=== PATIENT | male | born 1980 | race Caucasian/White ===

== ENCOUNTER 2022-04-30 11:28 | Outpatient (REF) | payer BC, SELFPAY ==
[2022-04-30 13:47] LABS: MANUAL DIFF FLAG NO
[2022-04-30 13:50] LABS: Basophils Percent Auto 0.5 % (0-2); Eosinophils Absolute Auto 0.2 X10*3/uL (0.0-0.4); Eosinophils Percent Auto 3.4 % (0-4); Hematocrit 50.5 % (42.0-52.0); Hemoglobin 16.8 g/dl (14.0-18.0); Imm Gran Abs Auto 0.01 X10*3/uL (0.00-0.03); Imm Gran Pct Auto 0.2 % (0.0-0.4); Mean Corpuscular HGB Conc 33.3 g/dl (31.0-36.0); Mean Platelet Volume 12.8 fL (9.4-12.4); Monocytes Absolute Auto 0.6 X10*3/uL (0.1-1.2); Monocytes Percent Auto 9.6 % (2-11); Neutrophils Absolute Auto 3.4 x10*3/uL (2.0-8.3); Neutrophils Percent Auto 54.3 % (45-73); Platelet Count 115 X10*3/uL (160-400); Red Blood Count 6.01 X10*6/uL (4.60-5.80); Red Cell Distribution Width 13.2 % (11.0-16.0); White Blood Count 6.2 X10*3/uL (4.8-10.8)
[2022-04-30 14:18] LABS: Appearance Urine Clear; Color Urine Yellow; Glucose Urine UA Negative (Negative); Leukocyte Esterase Urine Negative (Negative); Nitrite Urine Negative (Negative); Urine Blood Negative (Negative); Urine Ketones Negative (Negative); Urine Protein Negative (Neg-Trace)
[2022-04-30 14:23] LABS: Bacteria Urine None Seen (None Seen); Hyaline Casts Urine 0-2 /LPF (0-2); RBC Urine 0-2 /HPF (0-2); Squamous Epithelial Cell Urine 0-2 /HPF (0-2); WBC Urine 0-5 /HPF (0-5)
[2022-04-30 14:34] LABS: Alanine Aminotransferase 36 U/L (0-40); Albumin Level 4.4 g/dL (3.5-5.0); Alkaline Phosphatase 86 U/L (39-117); Anion Gap 15 (12-20); Aspartate Amino Transferase 28 U/L (5-37); Bilirubin Total 0.6 mg/dL (0.0-1.0); Blood Urea Nitrogen 15 mg/dL (9-16); Calcium 9.7 mg/dL (8.4-10.2); Carbon Dioxide 26 mmol/L (22-29); Chloride 104 mmol/L (96-108); Cholesterol 200 mg/dL; Estimated Glomerular Filt Rate > 60; Glucose Fasting 98 mg/dL (60-99); HDL Cholesterol 52 mg/dL; LDL Cholesterol Calculated 117 mg/dl; Sodium 140 mmol/L (135-145); Total Protein 7.3 g/dL (6.5-8.0); Triglycerides 155 mg/dL
== END 2022-04-30 11:29 | disposition home or self-care (01) ==
LOC: HO.HMGCLDS 11:28
PROVIDERS: PCP Internal Medicine; Visit Provider Internal Medicine
DX: Z00.00 Encounter for general adult medical examination without abnormal findings (principal)
CPT/HCPCS: 36415; 80053; 80061; 81001; 85025

== ENCOUNTER 2022-06-08 12:57 | Outpatient (REF) | payer BC, SELFPAY ==
[2022-06-08 14:24] LABS: Baso%MD 0.4 %; Eos%MD 2.2 %; Hematocrit 48.7 % (42.0-52.0); Hemoglobin 16.6 g/dl (14.0-18.0); IG%MD 0.2 %; Lymph%MD 30.2 %; Mean Corpuscular HGB Conc 34.1 g/dl (31.0-36.0); Mean Corpuscular Hemoglobin 28.8 pg (27.0-33.0); Mean Corpuscular Volume 84.4 fL (80.0-98.0); Mono%MD 10.4 %; Neut%MD 56.6 %; Platelet Count 121 X10*3/uL (160-400); Red Blood Count 5.77 X10*6/uL (4.60-5.80); Red Cell Distribution Width 13.5 % (11.0-16.0); White Blood Count 5.6 X10*3/uL (4.8-10.8)
[2022-06-08 15:31] LABS: Folate 11.7 ng/mL (> or = 4.0); Vitamin B12 562 pg/mL (200-900)
[2022-06-08 15:32] LABS: Atypical Lymph Absolute Manual 0.1 x10*3/uL; Atypical Lymphs Percent Manual 1 % (0-6); Band Neutrophils Percent 2 % (3-5); Basophils Abs Manual 0.2 X10*3/uL (0.0-0.2); Basophils Percent Manual 3 % (0-2); Eosinophils Absolute Manual 0.1 X10*3/uL (0.0-0.4); Eosinophils Percent Manual 2 % (0-4); Lymphocytes Absolute Manual 1.3 X10*3/uL (1.2-4.9); Lymphocytes Percent Manual 23 % (20-40); Monocytes Absolute Manual 0.4 X10*3/uL (0.1-1.2); Monocytes Percent Manual 7 % (2-11); Neutrophils Absolute Manual 3.6 X10*3/uL (2.0-8.3); Neutrophils Percent Manual 62 % (45-73)
[2022-06-08 15:33] LABS: Platelet Estimate SLIGHTLY DECREASED (NORMAL); Platelet Morphology Comment NORMAL; RBC Morphology NORMAL
== END 2022-06-08 12:58 | disposition home or self-care (01) ==
LOC: HO.HMGCLDS 12:57
PROVIDERS: PCP Internal Medicine; Visit Provider Internal Medicine
DX: D69.6 Thrombocytopenia, unspecified (principal)
CPT/HCPCS: 36415; 82607; 82746; 85007; 85027

== ENCOUNTER 2023-03-07 13:09 | Outpatient (AMB) | payer BC, SELFPAY ==
[2023-03-07 13:37] VITALS: BP 124/86; PULSE 63; O2SAT 99; BMI 31.1
--- NOTE | 2023-03-07 13:37 | A.OFFPC_ITS ---
Vital Signs 03/07/23 13:37 Height 5 ft 10 in Weight 217 lb BMI 31.1 BP 124/86 Blood Pressure Location Lt brachial Position Sitting Pulse 63 Pulse Source Pulse Oximeter Pulse Oximetry (%) 99 Oxygen Delivery Method Room Air Intake Visit Reasons: follow up per pt concerns Intake Note: Pt is here today for a sick visit. Pt c/o swollen lower lip since December. Allergies No Known Allergies Allergy (Verified 03/07/23 13:44) Tobacco use date assessed: 03/07/23 Dental Screening Dental Screen Date: 03/07/23 Did you have a dental visit in the last 12 months?: Yes Did you have a dental problem in the last 6 months where you did not have access to dental care?: No Was dental information given to patient?: Patient has dentist HPI follow up per pt concerns HPI Details Pt c/o persistently swollen lower lip since December, started after a dental cleaning. He denies pain difficulty swallowing facial swelling or rash. Patient has been eating peanut butter a lot recently and stopped about 2 weeks ago. Patient has been applying petroleum jelly which has been helpful. 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 1. Little interest or pleasure in doing things: several days 2. Feeling down, depressed, or hopeless: not at all 3. Trouble falling or staying asleep, or sleeping too much: not at all 4. Feeling tired or having little energy: several days 5. Poor appetite or overeating: not at all 6. Feeling bad about yourself - or that you are a failure or have let yourself or your family down: not at all 7. Trouble concentrating on things, such as reading the newspaper or watching television: several days 8. Moving or speaking so slowly that other people could have noticed. Or the opposite - being so fidgety or restless that you have been moving around a lot more than usual: not at all 9. Thoughts that you would be better off or of hurting yourself in some way: not at all Total score: 3 Depression Screening Interpretation: Negative Source: Developed by Drs. Rony Vallejo, Avis Singleton, Sumeet Perdomo and colleagues, with an educational chris from [employer]. Thrive Questionnaire Date Thrive assessed: 03/07/23 I am a: Patient What is your living situation today?: I have a steady place to live Within the past 12 months, did the food you bought not last and you didn't have the money to get more?: Never true Within the past 12 months, did you worry whether your food would run out before you got money to buy more?: Never true Do you have trouble paying for medicines?: No Do you have trouble getting transportation to medical appointments?: No Do you have trouble paying your heating and electricity bill?: No Do you have trouble taking care of your child, family member or friend?: No Do you have trouble with day-to-day activities such as bathing, preparing meals, shopping, managing finances, etc.?: No Are you currently unemployed and looking for a job?: No Are you interested in more education?: No Please select the resources that you would like help with: None Currently or been in a relationship where the following occur: no concerns reported AUDIT C Alcohol Use Questionnaire (AUDIT-C) 1. How often do you have a drink containing alcohol?: Never 3. How often do you have six or more drinks on one occasion?: Never Total Score: 0 TETO-7 AMB Questionnaire TETO-7 Date TETO - 7 assessed: 04/28/22 Feeling nervous, anxious, or on edge: 1 = Several days Not being able to stop or control worryin = Not at all Worrying too much about different things: 0 = Not at all Trouble relaxin = Not at all Being so restless that it is hard to sit still: 0 = Not at all Becoming easily annoyed or irritable: 0 = Not at all Feeling afraid as if something awful might happen: 2 = More than half the days Total TETO-7 score (0-4 normal; 5-9 mild; 10-14 moderate; 15-21 severe): 3 Source: Developed by Drs. Rony Vallejo, Avis Singleton, Sumeet Perdomo and colleagues, with an educational chris from [employer]. Review of Systems Const All systems reviewed & are unremarkable except as noted in HPI and below Reports no additional complaints Eyes Reports no additional complaints ENT Reports no additional complaints Card Reports no additional complaints Resp Reports no additional complaints GI Reports no additional complaints Reports no additional complaints Physical exam (Primary Care) Vital Signs: Last Vital Signs Pulse 63 03/07/23 13:37 BP 124/86 03/07/23 13:37 Pulse Ox 99 03/07/23 13:37 Oxygen Delivery Method Room Air 03/07/23 13:37 BMI result Body Mass Index 31.1 Tobacco/Smoking Status: Tobacco use Status Tobacco use date assessed 03/07/23 03/07/23 13:48 Patient Tobacco Use Status Former Tobacco user 03/07/23 13:37 e-Cigarette/Vaping Use Never Used 03/07/23 13:37 PHQ-9: PHQ-9 Score PHQ-9: Total score 3 03/07/23 13:48 Depression Screening Interpretation: Negative Thrive Assessment: Date of Thrive Assessment Date Thrive assessed 03/07/23 03/07/23 13:48 Currently or been in a relationship where the following occur: no concerns reported Const General: no acute distress HENMT Head: Yes normal to inspection Ears: hearing grossly normal bilaterally Face and sinus: Yes normal facial exam Mouth: lip normal (Lower lip is slightly more pronounced than the upper lip,no lesions), tongue normal and moist mucous membranes Throat: Yes posterior oropharynx normal Eyes General: appearance normal, both eyes and all related structures Neck Neck: Yes no lymphadenopathy and Yes supple Resp Effort & Inspection: normal respiratory effort Auscultation: clear to auscultation bilaterally Cardio Heart sounds: S1 normal heart sound present and S2 normal heart sound present Assessment and Plan Assessment & Plan (1) Lip swelling: Code(s): R22.0 - Localized swelling, mass and lump, head Plan: For persistent lower lip swelling blood work to rule out acromegaly will be obtained. Patient was advised to try antihistamine. If the symptoms persist pt will be referred for allergy testing Orders: Orders IGF-1 (Somatomedin C) Today R22.0 - Localized swelling, mass and lump, head TSH reflex Free T4 Today R22.0 - Localized swelling, mass and lump, head Immunoglobulin E Today R22.0 - Localized swelling, mass and lump, head Complete Blood Count Auto Diff Today D69.6 - Thrombocytopenia, unspecified Coding Level of Care Code Est Pt Level 3 (23888) Diagnoses Lip swelling R22.0
== END 2023-03-07 14:31 | disposition home or self-care (01) ==
PROVIDERS: PCP Internal Medicine; Visit Provider Internal Medicine
DX: R22.0 Localized swelling, mass and lump, head (principal)
CPT/HCPCS: 99213

== ENCOUNTER 2023-03-07 14:17 | Outpatient (REF) | payer BC, SELFPAY ==
[2023-03-07 16:02] LABS: MANUAL DIFF FLAG NO
[2023-03-07 16:32] LABS: Basophils Percent Auto 0.3 % (0-2); Eosinophils Absolute Auto 0.1 X10*3/uL (0.0-0.4); Eosinophils Percent Auto 1.6 % (0-4); Hematocrit 51.2 % (42.0-52.0); Hemoglobin 16.8 g/dl (14.0-18.0); Imm Gran Abs Auto 0.02 X10*3/uL (0.00-0.03); Imm Gran Pct Auto 0.3 % (0.0-0.4); Lymphocytes Absolute Auto 1.9 X10*3/uL (1.2-4.9); Mean Corpuscular HGB Conc 32.8 g/dl (31.0-36.0); Mean Corpuscular Hemoglobin 28.2 pg (27.0-33.0); Mean Corpuscular Volume 86.1 fL (80.0-98.0); Mean Platelet Volume 12.9 fL (9.4-12.4); Monocytes Absolute Auto 0.5 X10*3/uL (0.1-1.2); Monocytes Percent Auto 7.6 % (2-11); Neutrophils Absolute Auto 4.2 x10*3/uL (2.0-8.3); Neutrophils Percent Auto 62.2 % (45-73); Platelet Count 117 X10*3/uL (160-400); Red Blood Count 5.95 X10*6/uL (4.60-5.80); Red Cell Distribution Width 13.1 % (11.0-16.0); White Blood Count 6.7 X10*3/uL (4.8-10.8)
[2023-03-09 07:34] LABS: Immunoglobulin E 56 kU/L (<OR=114)
[2023-03-13 16:42] LABS: IGF-1 (Somatomedin C) 187 ng/mL (52-328); IGF-1 Z Score (Male) 0.6 SD (-2.0 - +2.0)
== END 2023-03-07 14:18 | disposition home or self-care (01) ==
LOC: HO.HMGCLDS 14:17
PROVIDERS: PCP Internal Medicine; Visit Provider Internal Medicine
DX: R22.0 Localized swelling, mass and lump, head (principal); D69.6 Thrombocytopenia, unspecified
CPT/HCPCS: 36415; 82785; 84305; 84443; 85025

== ENCOUNTER 2023-05-16 13:07 | Outpatient (AMB) | payer BC, SELFPAY ==
[2023-05-16 13:21] VITALS: BP 118/72; PULSE 77; O2SAT 98; BMI 31.3
--- NOTE | 2023-05-16 13:21 | MHC.PC.OV ---
Vital Signs 05/16/23 13:21 Height 5 ft 10 in Weight 218 lb BMI 31.3 BP 118/72 Blood Pressure Location Lt brachial Position Sitting Pulse 77 Pulse Source Pulse Oximeter Pulse Oximetry (%) 98 Oxygen Delivery Method Room Air Intake Visit Reasons: PE Intake Note: Pt is here today for PE. Pt would like to know the results of his labs from February. Allergies No Known Allergies Allergy (Verified 05/16/23 13:23) Tobacco use date assessed: 05/16/23 Dental Screening Dental Screen Date: 05/16/23 Did you have a dental visit in the last 12 months?: Yes Did you have a dental problem in the last 6 months where you did not have access to dental care?: No Was dental information given to patient?: Patient has dentist HPI PE HPI Details Pt presents for PE. 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 1. Little interest or pleasure in doing things: several days 2. Feeling down, depressed, or hopeless: not at all 3. Trouble falling or staying asleep, or sleeping too much: not at all 4. Feeling tired or having little energy: several days 5. Poor appetite or overeating: not at all 6. Feeling bad about yourself - or that you are a failure or have let yourself or your family down: several days 7. Trouble concentrating on things, such as reading the newspaper or watching television: not at all 8. Moving or speaking so slowly that other people could have noticed. Or the opposite - being so fidgety or restless that you have been moving around a lot more than usual: not at all 9. Thoughts that you would be better off or of hurting yourself in some way: not at all Total score: 3 Depression Screening Interpretation: Negative Source: Developed by Drs. Rony Vallejo, Sumeet Quiles and colleagues, with an educational chris from [employer]. Thrive Questionnaire Date Thrive assessed: 05/16/23 I am a: Patient What is your living situation today?: I have a steady place to live Within the past 12 months, did the food you bought not last and you didn't have the money to get more?: Never true Within the past 12 months, did you worry whether your food would run out before you got money to buy more?: Never true Do you have trouble paying for medicines?: No Do you have trouble getting transportation to medical appointments?: No Do you have trouble paying your heating and electricity bill?: No Do you have trouble taking care of your child, family member or friend?: No Do you have trouble with day-to-day activities such as bathing, preparing meals, shopping, managing finances, etc.?: No Are you currently unemployed and looking for a job?: No Are you interested in more education?: No Please select the resources that you would like help with: None Currently or been in a relationship where the following occur: no concerns reported TETO-7 AMB Questionnaire TETO-7 Date TETO - 7 assessed: 05/16/23 Feeling nervous, anxious, or on edge: 0 = Not at all Not being able to stop or control worryin = Not at all Worrying too much about different things: 1 = Several days Trouble relaxin = Not at all Being so restless that it is hard to sit still: 0 = Not at all Becoming easily annoyed or irritable: 1 = Several days Feeling afraid as if something awful might happen: 1 = Several days Total TETO-7 score (0-4 normal; 5-9 mild; 10-14 moderate; 15-21 severe): 3 Source: Developed by Drs. Rony Vallejo, Sumeet Quiles and colleagues, with an educational chris from [employer]. Review of Systems Const All systems reviewed & are unremarkable except as noted in HPI and below Reports no additional complaints Eyes Reports no additional complaints ENT Reports no additional complaints Card Reports no additional complaints Resp Reports no additional complaints GI Reports no additional complaints Reports no additional complaints Physical exam (Primary Care) Vital Signs: Last Vital Signs Pulse 77 05/16/23 13:21 BP 118/72 05/16/23 13:21 Pulse Ox 98 05/16/23 13:21 Oxygen Delivery Method Room Air 05/16/23 13:21 BMI result Body Mass Index 31.3 Tobacco/Smoking Status: Tobacco use Status Tobacco use date assessed 05/16/23 05/16/23 13:35 Patient Tobacco Use Status Former Tobacco user 05/16/23 13:24 e-Cigarette/Vaping Use Never Used 05/16/23 13:24 PHQ-9: PHQ-9 Score PHQ-9: Total score 3 05/16/23 13:40 Depression Screening Interpretation: Negative Thrive Assessment: Date of Thrive Assessment Date Thrive assessed 05/16/23 05/16/23 13:39 Currently or been in a relationship where the following occur: no concerns reported Const General: no acute distress HENMT Head: Yes normal to inspection Ears: hearing grossly normal bilaterally General nose exam: Normal external nose present Throat: Yes posterior oropharynx normal Eyes General: appearance normal, both eyes and all related structures Neck Neck: Yes no lymphadenopathy and Yes supple Resp Effort & Inspection: normal respiratory effort Auscultation: clear to auscultation bilaterally Cardio Rhythm: regular rhythm Heart sounds: S1 normal heart sound present and S2 normal heart sound present GI Inspection: Yes normal to inspection Palpation (GI): Soft to palpation Percussion: Yes normal to percussion Auscultation: normal bowel sounds Assessment and Plan Assessment & Plan (1) Annual physical exam: Code(s): Z00.00 - Encounter for general adult medical examination without abnormal findings Plan: well balanced diet, regular exercise discussed, return for PE in 1 year, Labs today Orders: Orders Complete Blood Count Auto Diff Today D69.6 - Thrombocytopenia, unspecified, Z00.00 - Encounter for general adult medical examination without abnormal findings Lipid Panel Today D69.6 - Thrombocytopenia, unspecified, Z00.00 - Encounter for general adult medical examination without abnormal findings UA w Microscopic Today D69.6 - Thrombocytopenia, unspecified, Z00.00 - Encounter for general adult medical examination without abnormal findings Comprehensive Met. Panel Today D69.6 - Thrombocytopenia, unspecified, Z00.00 - Encounter for general adult medical examination without abnormal findings Coding Level of Care Code Est Pt Prev Care 40-64y(50896) Diagnoses Annual physical exam Z00.00
== END 2023-05-16 14:49 | disposition home or self-care (01) ==
PROVIDERS: PCP Internal Medicine; Visit Provider Internal Medicine
DX: Z00.00 Encounter for general adult medical examination without abnormal findings (principal)
CPT/HCPCS: 99396

== ENCOUNTER 2023-05-16 14:23 | Outpatient (REF) | payer BC, SELFPAY ==
[2023-05-16 16:08] LABS: MANUAL DIFF FLAG NO
[2023-05-16 16:16] LABS: Basophils Percent Auto 0.3 % (0-2); Eosinophils Absolute Auto 0.2 X10*3/uL (0.0-0.4); Eosinophils Percent Auto 2.3 % (0-4); Hematocrit 52.1 % (42.0-52.0); Hemoglobin 17.3 g/dl (14.0-18.0); Imm Gran Abs Auto 0.01 X10*3/uL (0.00-0.03); Imm Gran Pct Auto 0.2 % (0.0-0.4); Lymphocytes Percent Auto 30.3 % (20-40); Mean Corpuscular HGB Conc 33.2 g/dl (31.0-36.0); Mean Corpuscular Hemoglobin 28.2 pg (27.0-33.0); Mean Platelet Volume 12.6 fL (9.4-12.4); Monocytes Absolute Auto 0.7 X10*3/uL (0.1-1.2); Monocytes Percent Auto 10.2 % (2-11); Neutrophils Absolute Auto 3.7 x10*3/uL (2.0-8.3); Neutrophils Percent Auto 56.7 % (45-73); Platelet Count 116 X10*3/uL (160-400); Red Blood Count 6.13 X10*6/uL (4.60-5.80); Red Cell Distribution Width 13.1 % (11.0-16.0); White Blood Count 6.6 X10*3/uL (4.8-10.8)
[2023-05-16 16:24] LABS: Alanine Aminotransferase 24 U/L (0-40); Albumin Level 4.6 g/dL (3.5-5.0); Alkaline Phosphatase 79 U/L (39-117); Anion Gap 11 (12-20); Aspartate Amino Transferase 22 U/L (5-37); Bilirubin Total 0.6 mg/dL (0.0-1.0); Blood Urea Nitrogen 14 mg/dL (9-16); Calcium 9.6 mg/dL (8.4-10.2); Carbon Dioxide 26 mmol/L (22-29); Chloride 106 mmol/L (96-108); Cholesterol 178 mg/dL (<200); Estimated Glomerular Filt Rate > 60; Glucose Random 89 mg/dL (60-115); HDL Cholesterol 50 mg/dL (>40); LDL Cholesterol Calculated 104 mg/dL (<100); Potassium 4.4 mmol/L (3.3-5.1); Sodium 139 mmol/L (135-145); Total Protein 7.6 g/dL (6.5-8.0); Triglycerides 123 mg/dL (<150)
[2023-05-16 16:27] LABS: Appearance Urine Clear; Color Urine Yellow; Glucose Urine UA Negative (Negative); Leukocyte Esterase Urine Negative (Negative); Nitrite Urine Negative (Negative); Urine Blood Negative (Negative); Urine Ketones Negative (Negative); Urine Protein Negative (Neg-Trace)
[2023-05-16 16:29] LABS: Bacteria Urine None Seen (None Seen); Hyaline Casts Urine 0-2 /LPF (0-2); RBC Urine 0-2 /HPF (0-2); Squamous Epithelial Cell Urine 0-2 /HPF (0-2); WBC Urine 0-5 /HPF (0-5)
== END 2023-05-16 14:24 | disposition home or self-care (01) ==
LOC: HO.HMGCLDS 14:23
PROVIDERS: PCP Internal Medicine; Visit Provider Internal Medicine
DX: Z00.00 Encounter for general adult medical examination without abnormal findings (principal); D69.6 Thrombocytopenia, unspecified
CPT/HCPCS: 36415; 80053; 80061; 81001; 85025

== ENCOUNTER 2023-06-11 11:29 | Outpatient (AMB) | payer BC, SELFPAY ==
--- NOTE | 2023-06-11 11:34 | MHC.OFFWIV ---
Intake Vital Signs 06/11/23 11:35 Height 5 ft 10 in Weight 101.151 kg BMI 32.0 BP 110/70 Blood Pressure Location Lt brachial Position Sitting Pulse 77 Pulse Source Pulse Oximeter Temp 98.3 F Temp Source Temporal Artery Scan Pulse Oximetry (%) 98 Oxygen Delivery Method Room Air Intake Visit Reasons: EP, left ear clicking noise Intake Note: Pt is here today c/o Left ear clicking noise Patient Tobacco Use Status: Former Tobacco user Allergies No Known Allergies Allergy (Verified 06/11/23 11:39) Do you need a note to return to daycare/school/sports/work: No HPI HPI Comments History of Present Illness Details 1150 42-year-old male presents with clicking/popping sensation on left ear has been going on for 2 weeks, not resolving instead getting worse. Some discomfort however he says it is not really painful. Patient states this is never happened to him before. Reports muffled hearing in the left ear. Normal right ear he states. Denies otorrhea, pain, fevers, chills, trauma, nausea, vomiting, abdominal pain. Physical exam significant for Pharynx normal.??External ears normal, TM errythematous to L ear, w/ a/c effusion and errythema to L ear canal. Normal R. TM and Ec. No mastoid tenderness. Concerns for left-sided otitis media with effusion. No signs of otitis externa, mastoiditis, malignant otitis. Plan antibiotics. Educated patient on diagnosis and treatment plan, answered all question, patient verbalizes understanding. At this time patient will be discharged home, advised to return with new or worsening symptoms. Educated on worrisome signs and symptoms and when to return. At this time I feel comfortable discharge home. 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 Tobacco Use Status: Former Tobacco user e-Cigarette/Vaping Use: Never Used service: No Current occupational status: employed Cognitive needs: No Hearing needs: No Vision needs: Yes Review of Systems Const Details: Constitutional : No Weight loss, No Fever, No Chills, No Fatigue, No Malaise ENT/Mouth : No sore throat, No Rhinorrhea, + ear discomfort Eyes: No Eye Pain, No Swelling, No Redness Cardiovascular : No Chest Pain, No SOB, No Dyspnea on Exertion, No Orthopnea, No Edema, No Palpitations Respiratory : No Cough, No Sputum, No Wheezing Gastrointestinal : No Nausea, No Vomiting, No Diarrhea, No Constipation, No abdominal Pain, No Hematochezia, No Melena Genitourinary : No Dysuria, No Urinary Frequency, No Hematuria, Musculoskeletal : No joint pain, No Myalgias, No Joint Swelling Skin : No Skin Lesions, No rash Neuro : No Weakness, No Numbness, No Dizziness, No Headache Psych : No Anxiety/Panic, No Depression All other systems reviewed and are negative All systems reviewed & are unremarkable except as noted in HPI and below Physical Exam Vital Signs: Last Vital Signs Temp 98.3 F 06/11/23 11:35 Pulse 77 06/11/23 11:35 BP 110/70 06/11/23 11:35 Pulse Ox 98 06/11/23 11:35 Oxygen Delivery Method Room Air 06/11/23 11:35 BMI result Body Mass Index 32.0 vss Appearance: Alert.? Oriented X3.? No acute distress.? Head: Normocephalic, atraumatic, no step-offs or deformities Eyes: Pupils equal, round and reactive to light.? ENT: Pharynx normal.??External ears normal, TM errythematous to L ear, w/ a/c effusion and errythema to L ear canal. Normal R. TM and Ec. No mastoid tenderness. Neck: Normal inspection.? Neck supple.? CVS: Normal heart rate and rhythm.? Pulses normal.? Respiratory: No respiratory distress.? Breath sounds normal.? Abdomen: Soft and nontender.? Skin: Skin warm and dry.? Normal skin color.? Normal skin turgor.? Extremities: No lower extremity edema.? No calf ttp. 5/5 strength to bilateral upper and lower extremities Back: No midline tenderness, no C-spine tenderness, full range of motion, no CVA tenderness bilaterally Neuro: Oriented X 3.? No motor deficit.? No sensory deficit. CN 2-12 intact Assessment & Plan Assessment & Plan (1) Ear infection: Code(s): H66.90 - Otitis media, unspecified, unspecified ear Plan Take your medications as prescribed. If you were prescribed antibiotics today, it is important that you take your medication to their entirety, do not skip any doses, do not finish them early. Follow-up with your primary care provider this week. Return to the emergency department with new or worsening symptoms. Such as fevers, chills, chest pain, shortness of breath, nausea, vomiting, dizziness, headache, vision changes, lethargy In case of emergency call 911 Medications: New amoxicillin-pot clavulanate 875-125 mg 1 tab PO BID 20 tabs 0RF 10 days ciprofloxacin-dexamethasone 0.3-0.1 % 4 drps otic (ears) BID 7.5 mL 0RF 7 days prednisone 20 mg PO DAILY 5 tabs 0RF 5 days Coding Level of Care Code Est Pt Level 3 (37206) Diagnoses Ear infection H66.90
[2023-06-11 11:35] VITALS: BP 110/70; PULSE 77; TEMP 36.8; O2SAT 98; BMI 32.0
== END 2023-06-11 14:57 | disposition home or self-care (01) ==
PROVIDERS: PCP Internal Medicine; Visit Provider Physician Assistant
DX: H66.90 Otitis media, unspecified, unspecified ear (principal)
CPT/HCPCS: 99213

== ENCOUNTER 2023-09-14 09:11 | Outpatient (AMB) | payer BC, SELFPAY ==
--- NOTE | 2023-09-14 10:13 | MHC.OFFWIV ---
Intake Vital Signs 09/14/23 10:18 Height 5 ft 10 in BP 150/80 H Blood Pressure Location Lt brachial Position Sitting Pulse 86 Pulse Source Pulse Oximeter Temp 98.4 F Temp Source Temporal Artery Scan Pulse Oximetry (%) 98 Oxygen Delivery Method Room Air Intake Visit Reasons: EP Cold Symptoms [phone] Intake Note: Pt is here c/o congestion, headache and body weakness for three days. Patient Tobacco Use Status: Former Tobacco user Allergies No Known Allergies Allergy (Verified 09/14/23 10:55) Do you need a note to return to daycare/school/sports/work: Yes HPI HPI Comments History of Present Illness Details Tuesday night started w/ Nasal congestion and ear fullness that developed after having flu like sx > 3 weeks ago Assoc w/ mild cough and PND T 101.4 yesterday AM. this was only x 1. 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 Tobacco Use Status: Former Tobacco user e-Cigarette/Vaping Use: Never Used service: No Current occupational status: employed Cognitive needs: No Hearing needs: No Vision needs: Yes Review of Systems Const All systems reviewed & are unremarkable except as noted in HPI and below Physical Exam Vital Signs: Last Vital Signs Temp 98.4 F 09/14/23 10:18 Pulse 86 09/14/23 10:18 BP 150/80 H 09/14/23 10:18 Pulse Ox 98 09/14/23 10:18 Oxygen Delivery Method Room Air 09/14/23 10:18 Const Other: awake alert EAC with cerumen cannot see TM nares w/ purulent drainge, turbinates erythematous and edematous pharynx with PND RRR LS CTAB occasional cough Assessment & Plan Assessment & Plan (1) Sinusitis: Code(s): J32.9 - Chronic sinusitis, unspecified Qualifiers: Sinusitis location: pansinusitis Chronicity: acute Recurrence: non-recurrent Qualified Code(s): J01.40 - Acute pansinusitis, unspecified Plan: . Medications: New amoxicillin-pot clavulanate 875-125 mg 1 tab PO BID 7 days 14 tabs 0RF Coding Level of Care Code Est Pt Level 3 (93938) Diagnoses Acute non-recurrent pansinusitis J01.40 Sinusitis location: pansinusitis Chronicity: acute Recurrence: non-recurrent
[2023-09-14 10:18] VITALS: BP 150/80; PULSE 86; TEMP 36.9; O2SAT 98
== END 2023-09-14 11:25 | disposition home or self-care (01) ==
PROVIDERS: PCP Internal Medicine; Visit Provider Nurse Practitioner Family
DX: J01.40 Acute pansinusitis, unspecified (principal)
CPT/HCPCS: 99213

== ENCOUNTER 2024-05-23 12:52 | Outpatient (AMB) | payer BC, SELFPAY ==
[2024-05-23 12:53] VITALS: BP 110/68; PULSE 66; O2SAT 99; BMI 31.7
--- NOTE | 2024-05-23 12:53 | A.OFFPC_ITS ---
Vital Signs 05/23/24 12:53 Height 5 ft 10 in Weight 221 lb BMI 31.7 BP 110/68 Blood Pressure Location Rt brachial Position Sitting Pulse 66 Pulse Source Pulse Oximeter Pulse Oximetry (%) 99 Oxygen Delivery Method Room Air Intake Visit Reasons: PE Intake Note: Pt is here today for PE. Allergies No Known Allergies Allergy (Verified 05/23/24 12:54) Medication List - Last Reconciled 05/23/24 by Farrah Hsu MD No Known Home Meds Tobacco use date assessed: 05/23/24 Dental Screening Dental Screen Date: 05/23/24 Did you have a dental visit in the last 12 months?: Yes Did you have a dental problem in the last 6 months where you did not have access to dental care?: No Was dental information given to patient?: Patient has dentist HPI PE HPI Details Pt presents for PE. 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 1. Little interest or pleasure in doing things: not at all 2. Feeling down, depressed, or hopeless: not at all 3. Trouble falling or staying asleep, or sleeping too much: not at all 4. Feeling tired or having little energy: not at all 5. Poor appetite or overeating: not at all 6. Feeling bad about yourself - or that you are a failure or have let yourself or your family down: not at all 7. Trouble concentrating on things, such as reading the newspaper or watching television: not at all 8. Moving or speaking so slowly that other people could have noticed. Or the opposite - being so fidgety or restless that you have been moving around a lot more than usual: not at all 9. Thoughts that you would be better off or of hurting yourself in some way: not at all Total score: 0 Depression Screening Interpretation: Negative Depression Screening Done: Yes 84861 - PHQ-9 Billing: Yes Source: Developed by Drs. Rony Vallejo, Avis Singleton, Sumeet Perdomo and colleagues, with an educational chris from [employer]. Thrive Questionnaire Date Thrive assessed: 05/23/24 I am a: Patient What is your living situation today?: I choose not to answer this question Within the past 12 months, did the food you bought not last and you didn't have the money to get more?: I choose not to answer this question Within the past 12 months, did you worry whether your food would run out before you got money to buy more?: I choose not to answer this question Do you have trouble paying for medicines?: I choose not to answer this question Do you have trouble getting transportation to medical appointments?: I choose not to answer this question Do you have trouble paying your heating and electricity bill?: I choose not to answer this question Do you have trouble taking care of your child, family member or friend?: I choose not to answer this question Do you have trouble with day-to-day activities such as bathing, preparing meals, shopping, managing finances, etc.?: I choose not to answer this question Are you currently unemployed and looking for a job?: I choose not to answer this question Are you interested in more education?: I choose not to answer this question Please select the resources that you would like help with: None Currently or been in a relationship where the following occur: I choose not to answer THRIVE Score: 0 AUDIT C Alcohol Use Questionnaire (AUDIT-C) 1. How often do you have a drink containing alcohol?: Never Total Score: 0 TETO-7 AMB Questionnaire TETO-7 Date TETO - 7 assessed: 05/23/24 Feeling nervous, anxious, or on edge: 0 = Not at all Not being able to stop or control worryin = Not at all Worrying too much about different things: 0 = Not at all Trouble relaxin = Not at all Being so restless that it is hard to sit still: 0 = Not at all Becoming easily annoyed or irritable: 0 = Not at all Feeling afraid as if something awful might happen: 0 = Not at all Total TETO-7 score (0-4 normal; 5-9 mild; 10-14 moderate; 15-21 severe): 0 Source: Developed by Drs. Rony Vallejo, Avis Singleton, Sumeet Perdomo and colleagues, with an educational chris from [employer]. TETO-7 Assessment Billing TETO-7 Assessment Tool: TETO-7 Assessment 50524 Review of Systems Const All systems reviewed & are unremarkable except as noted in HPI and below Reports no additional complaints Eyes Reports no additional complaints ENT Reports no additional complaints Card Reports no additional complaints Resp Reports no additional complaints GI Reports no additional complaints Physical exam (Primary Care) Vital Signs: Last Vital Signs Pulse 66 05/23/24 12:53 BP 110/68 05/23/24 12:53 Pulse Ox 99 05/23/24 12:53 Oxygen Delivery Method Room Air 05/23/24 12:53 BMI result Body Mass Index 31.7 Tobacco/Smoking Status: Tobacco use Status Tobacco use date assessed 05/23/24 05/23/24 13:00 Patient Tobacco Use Status Former Tobacco user 05/23/24 13:00 e-Cigarette/Vaping Use Never Used 05/23/24 13:00 PHQ-9: PHQ-9 Score PHQ-9: Total score 0 05/23/24 13:00 Depression Screening Interpretation: Negative Thrive Assessment: Date of Thrive Assessment Date Thrive assessed 05/23/24 05/23/24 13:00 Currently or been in a relationship where the following occur: I choose not to answer Const General: no acute distress HENMT Head: Yes normal to inspection Ears: hearing grossly normal bilaterally Face and sinus: Yes normal facial exam Mouth: Normal oral and palatal mucosa present Eyes General: appearance normal, both eyes and all related structures Neck Neck: Yes no lymphadenopathy and Yes supple Resp Effort & Inspection: normal respiratory effort Auscultation: clear to auscultation bilaterally Cardio Rhythm: regular rhythm Heart sounds: S1 normal heart sound present and S2 normal heart sound present GI Inspection: Yes normal to inspection Palpation (GI): Soft to palpation Percussion: Yes normal to percussion Auscultation: normal bowel sounds Coding Level of Care Code Est Pt Prev Care 40-64y(44071) Diagnoses Annual physical exam Z00.00 Thrombocytopenia D69.6 Additional Codes TETO-7 Assessment Billing - TETO-7 Assessment Tool: TETO-7 Assessment 64847 ([id number]) Assessment & Plan Assessment & Plan (1) Annual physical exam: Code(s): Z00.00 - Encounter for general adult medical examination without abnormal findings Category: Medical Plan: Well-balanced diet regular physical activity discussed with the patient (2) Thrombocytopenia: Comment: mild, stable for years Code(s): D69.6 - Thrombocytopenia, unspecified Category: Medical Plan: We will monitor CBC Orders: Orders Comprehensive [place]. Panel Fast Today D69.6 - Thrombocytopenia, unspecified, Z00.00 - Encounter for general adult medical examination without abnormal findings Lipid Panel Today D69.6 - Thrombocytopenia, unspecified, Z00.00 - Encounter for general adult medical examination without abnormal findings UA w Microscopic Today D69.6 - Thrombocytopenia, unspecified, Z00.00 - Encounter for general adult medical examination without abnormal findings Comprehensive [place]. Panel Fast 1 Year D69.6 - Thrombocytopenia, unspecified, Z00.00 - Encounter for general adult medical examination without abnormal findings Complete Blood Count Auto Diff Today D69.6 - Thrombocytopenia, unspecified, Z00.00 - Encounter for general adult medical examination without abnormal findings Complete Blood Count Auto Diff 1 Year D69.6 - Thrombocytopenia, unspecified, Z00.00 - Encounter for general adult medical examination without abnormal findings Lipid Panel 1 Year D69.6 - Thrombocytopenia, unspecified, Z00.00 - Encounter for general adult medical examination without abnormal findings UA w Microscopic 1 Year D69.6 - Thrombocytopenia, unspecified, Z00.00 - Encounter for general adult medical examination without abnormal findings
== END 2024-05-23 13:30 | disposition home or self-care (01) ==
PROVIDERS: PCP Internal Medicine; Visit Provider Internal Medicine
DX: Z00.00 Encounter for general adult medical examination without abnormal findings (principal); D69.6 Thrombocytopenia, unspecified

== ENCOUNTER → 2024-05-23 12:52 | Outpatient (BNVA) | payer BC, SELFPAY | PROVIDERS: PCP Internal Medicine; Visit Provider Internal Medicine | DX: Z00.00 Encounter for general adult medical examination without abnormal findings (principal); D69.6 Thrombocytopenia, unspecified | CPT/HCPCS: 96127 ==

== ENCOUNTER 2024-05-28 11:11 | Outpatient (REF) | payer BC, SELFPAY ==
[2024-05-28 13:14] LABS: MANUAL DIFF FLAG NO
[2024-05-28 13:25] LABS: Appearance Urine Turbid; Color Urine Yellow; Glucose Urine UA Negative (Negative); Leukocyte Esterase Urine Negative (Negative); Nitrite Urine Negative (Negative); PH >= 9.0 (5.0-9.0); Urine Blood Negative (Negative); Urine Ketones Negative (Negative); Urine Protein Negative (Neg-Trace)
[2024-05-28 13:31] LABS: Bacteria Urine None Seen (None Seen); Hyaline Casts Urine 0-2 /LPF (0-2); RBC Urine 0-2 /HPF (0-2); Squamous Epithelial Cell Urine 0-2 /HPF (0-2); WBC Urine 0-5 /HPF (0-5)
[2024-05-28 13:34] LABS: Basophils Percent Auto 0.4 % (0-2); Eosinophils Absolute Auto 0.1 X10*3/uL (0.0-0.4); Eosinophils Percent Auto 2.4 % (0-4); Hematocrit 46.2 % (42.0-52.0); Hemoglobin 15.7 g/dl (14.0-18.0); Imm Gran Abs Auto 0.01 X10*3/uL (0.00-0.03); Imm Gran Pct Auto 0.2 % (0.0-0.4); Lymphocytes Absolute Auto 1.6 X10*3/uL (1.2-4.9); Lymphocytes Percent Auto 29.2 % (20-40); Mean Corpuscular Hemoglobin 28.9 pg (27.0-33.0); Mean Corpuscular Volume 85.1 fL (80.0-98.0); Mean Platelet Volume 12.7 fL (9.4-12.4); Monocytes Absolute Auto 0.5 X10*3/uL (0.1-1.2); Monocytes Percent Auto 9.3 % (2-11); Neutrophils Absolute Auto 3.2 x10*3/uL (2.0-8.3); Neutrophils Percent Auto 58.5 % (45-73); Platelet Count 112 X10*3/uL (160-400); Red Blood Count 5.43 X10*6/uL (4.60-5.80); Red Cell Distribution Width 13.1 % (11.0-16.0); White Blood Count 5.5 X10*3/uL (4.8-10.8)
[2024-05-28 14:00] LABS: Alanine Aminotransferase 28 U/L (0-40); Albumin Level 4.3 g/dL (3.5-5.0); Alkaline Phosphatase 63 U/L (39-117); Anion Gap 8 (12-20); Aspartate Amino Transferase 23 U/L (5-37); Bilirubin Total 0.6 mg/dL (0.0-1.0); Blood Urea Nitrogen 11 mg/dL (9-16); Calcium 9.4 mg/dL (8.4-10.2); Carbon Dioxide 28 mmol/L (22-29); Chloride 108 mmol/L (96-108); Cholesterol 150 mg/dL (<200); Estimated Glomerular Filt Rate > 60; Glucose Fasting 91 mg/dL (60-99); HDL Cholesterol 49 mg/dL (>40); LDL Cholesterol Calculated 89 mg/dL (<100); Potassium 3.8 mmol/L (3.3-5.1); Sodium 140 mmol/L (135-145); Triglycerides 64 mg/dL (<150)
== END 2024-05-28 11:12 | disposition home or self-care (01) ==
LOC: HO.HMGCLDS 11:11
PROVIDERS: PCP Internal Medicine; Visit Provider Internal Medicine
DX: Z00.00 Encounter for general adult medical examination without abnormal findings (principal); D69.6 Thrombocytopenia, unspecified
CPT/HCPCS: 36415; 80053; 80061; 81001; 85025

== ENCOUNTER 2024-10-11 13:22 | Outpatient (AMB) | payer BC, SELFPAY ==
--- NOTE | 2024-10-11 13:34 | AM.OFFWIN_ITS ---
Intake Vital Signs 10/11/24 13:36 Weight 217 lb BP 122/80 Blood Pressure Location Rt brachial Position Sitting Pulse 69 Pulse Source Pulse Oximeter Temp 98.2 F Temp Source Oral Pulse Oximetry (%) 98 Oxygen Delivery Method Room Air Intake Visit Reasons: EP-running nose, cough, headaches Intake Note: Patient here for cough, runny nose and headache that started Tuesday night. Patient Tobacco Use Status: Former Tobacco user Allergies No Known Allergies Allergy (Verified 10/11/24 13:36) Do you need a note to return to daycare/school/sports/work: Yes HPI HPI Comments History of Present Illness Details 43 y/o male patient who presents to the walk in clinic with c/o URI symptoms since Tuesday. Reports runny nose, headaches, cough and body aches. 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 Patient Tobacco Use Status: Former Tobacco user e-Cigarette/Vaping Use: Never Used service: No Current occupational status: employed Cognitive needs: No Hearing needs: No Vision needs: Yes Review of Systems Const All systems reviewed & are unremarkable except as noted in HPI and below Physical Exam Vital Signs: Last Vital Signs Temp 98.2 F 10/11/24 13:36 Pulse 69 10/11/24 13:36 BP 122/80 10/11/24 13:36 Pulse Ox 98 10/11/24 13:36 Oxygen Delivery Method Room Air 10/11/24 13:36 Const General: cooperative and no acute distress Nutritional Appearance: overweight Orientation/consciousness: patient oriented x3 HEENT Head: Yes normocephalic Ears: external ears normal and TM abnormal with fluid behind the TM bilateral General nose exam: Normal external nose present and Nasal discharge present Face and sinus: Yes sinuses nontender Mouth: moist mucous membranes Throat: Yes uvula midline Resp Effort & Inspection: normal respiratory effort, able to speak in complete sentences, no audible wheezes and no cough Auscultation: clear to auscultation bilaterally, no crackles, no rales, no rhonchi and no wheezes Cardio Heart sounds: S1 normal heart sound present and S2 normal heart sound present Neuro General: patient oriented x3 Assessment & Plan Assessment & Plan (1) Acute respiratory disease: Code(s): J06.9 - Acute upper respiratory infection, unspecified Plan: Ordered SARs Ordered cough medicine. (2) Cough: Code(s): R05.9 - Cough, unspecified Qualifiers: Cough type: acute Qualified Code(s): R05.1 - Acute cough Plan: Ordered SARs Ordered cough medicine. Orders: Orders SARS-CoV2/FLU/RSV Today J06.9 - Acute upper respiratory infection, unspecified Medications: New dextromethorphan-guaifenesin 5-100 mg/5 mL (Robitussin Cough-Chest Congestion DM) 10 mL PO Q4-8H PRN 1,000 mL 0RF cough J06.9 - Acute upper respiratory infection, unspecified, R05.1 - Acute cough benzonatate 100 mg PO TID 90 caps 0RF R05.1 - Acute cough Coding Level of Care Code Est Pt Level 4 (73499) Diagnoses Acute respiratory disease J06.9 Acute cough R05.1 Cough type: acute Time Spent (min) 20
[2024-10-11 13:36] VITALS: BP 122/80; PULSE 69; TEMP 36.8; O2SAT 98
--- OUTSIDE RECORDS SUMMARY | 2024-10-11 14:16 | XMS_ITS | Clinical Summary ---
Author Organization [facility] ity Address [address] [place] [address] Care Team Providers Care Awning Maker Name Role Phone Unavailable Primary Care Provider Unavailabl e Social History Tobacco Use Types Packs/Day Years Used Date Smoking Tobacco: Never Assessed Sex and Gender Information Value Date Recorded Sex Assigned at Not on file Legal Sex Male 7:39 PM EST Gender Identity Not on file Sexual Orientation Not on file Plan of Treatment Health Maintenance Due Date Last Done Comments DTaP,Tdap,and Td Vaccines (1 - Tdap) 11/01/1999 Hepatitis B Vaccines (1 of 3 - 19+ 3-dose series) 11/01/1999 Cholesterol Screening (Lipid Panel) 07/24/2022 Depression Screening 07/24/2022 HIV Screening 07/24/2022 Hepatitis C Screening 07/24/2022 Social Influencers of Health Screening 07/24/2022 COVID-19 Vaccine (2023-2 5 season) 2024 Influenza Vaccine (#1) 2024 HIB Vaccines Aged Out No longer eligi ble based on patient's age to complete this topic HPV Vaccines Aged Out No longer eligi ble based on patient's age to complete this topic Hepatitis A Vaccines Aged Out No long er eligible based on patient's age to complete this topic IPV Vaccines Aged Out No longer eligi ble based on patient's age to complete this topic MMR Vaccines Aged Out No longer eligi ble based on patient's age to complete this topic Meningococcal ACWY Vaccine Aged Out N o longer eligible based on patient's age to complete this topic Meningococcal B Vacine Aged Out No lo nger eligible based on patient's age to complete this topic Pneumococcal Vaccine: Pediat rics (0 to 5 Years) and At-Risk Patients (6 to 64 Years) Aged Out No longer eligible b ased on patient's age to complete this topic RSV Immunization Patients Un shlomo 20 months Aged Out No longer eligible b ased on patient's age to complete this topic Varicella Vaccines Aged Out No longer eligible based on patient's age to complete this topic
== END 2024-10-11 14:02 | disposition home or self-care (01) ==
PROVIDERS: PCP Internal Medicine; Visit Provider Nurse Practitioner Family
DX: J06.9 Acute upper respiratory infection, unspecified (principal); R05.1 Acute cough

== ENCOUNTER 2024-10-11 13:22 | Outpatient (REF) | payer BC, SELFPAY ==
--- OUTSIDE RECORDS SUMMARY | 2024-10-11 15:07 | XMS_ITS | Clinical Summary ---
Author Organization [facility] ity Address [address] [place] [address] Care Team Providers Care Residential Pest Control Technician Name Role Phone Unavailable Primary Care Provider [...]
[2024-10-11 17:39] LABS: Influenza A PCR POSITIVE (Negative); Influenza B PCR NEGATIVE (Negative); Resp Syncy Virus RNA Qual PCR NEGATIVE (Negative); SARS COV2 PCR INHOUSE NEGATIVE (Negative)
== END 2024-10-11 13:23 | disposition home or self-care (01) ==
LOC: HO.LAB 13:22
PROVIDERS: PCP Internal Medicine; Visit Provider Nurse Practitioner Family
DX: J06.9 Acute upper respiratory infection, unspecified (principal); R05.1 Acute cough
CPT/HCPCS: 0241U

== ENCOUNTER 2025-05-31 08:17 | Outpatient (REF) | payer BC, SELFPAY ==
[2025-05-31 10:10] LABS: MANUAL DIFF FLAG NO
[2025-05-31 10:21] LABS: Hematocrit 51.6 % (42.0-52.0); Hemoglobin 17.0 g/dl (14.0-18.0); Imm Gran Abs Auto 0.00 X10*3/uL (0.00-0.03); Imm Gran Pct Auto 0.0 % (0.0-0.4); Lymphocytes Absolute Auto 1.8 X10*3/uL (1.2-4.9); Mean Corpuscular HGB Conc 32.9 g/dl (31.0-36.0); Mean Corpuscular Hemoglobin 28.6 pg (27.0-33.0); Mean Corpuscular Volume 86.7 fL (80.0-98.0); NRBC Abs Auto 0.000 X10*3/uL (0.0-0.012); NRBC Pct Auto 0.0 /100WBC (0.0-0.2); Platelet Count 122 X10*3/uL (160-400); Red Blood Count 5.95 X10*6/uL (4.60-5.80); White Blood Count 5.1 X10*3/uL (4.8-10.8)
[2025-05-31 10:41] LABS: Alanine Aminotransferase 37 U/L (0-40); Albumin Level 4.9 g/dL (3.5-5.0); Alkaline Phosphatase 80 U/L (39-117); Anion Gap 11 (12-20); Aspartate Amino Transferase 31 U/L (5-37); Blood Urea Nitrogen 13 mg/dL (9-16); Calcium 9.8 mg/dL (8.4-10.2); Carbon Dioxide 28 mmol/L (22-29); Chloride 107 mmol/L (96-108); Cholesterol 199 mg/dL (<200); Estimated Glomerular Filt Rate > 60; HDL Cholesterol 52 mg/dL (>40); Potassium 4.6 mmol/L (3.3-5.1); Sodium 141 mmol/L (135-145); Total Protein 7.5 g/dL (6.5-8.0); Triglycerides 107 mg/dL (<150)
[2025-05-31 11:08] LABS: Appearance Urine Clear; Glucose Urine UA Negative (Negative); PH 6.5 (5.0-9.0); Specific Gravity - Urine 1.015 (1.005-1.025)
== END 2025-05-31 08:18 | disposition home or self-care (01) ==
LOC: HO.HMGCLDS 08:17
PROVIDERS: PCP Internal Medicine; Visit Provider Internal Medicine
DX: Z00.00 Encounter for general adult medical examination without abnormal findings (principal); D69.6 Thrombocytopenia, unspecified
CPT/HCPCS: 36415; 80053; 80061; 81001; 82306; 85025; 96127

== ENCOUNTER 2025-05-31 08:17 | Outpatient (AMB) | payer BC, SELFPAY ==
--- NOTE | 2025-05-31 08:21 | MHC.PC.OV ---
Vital Signs 05/31/25 08:22 Height 5 ft 10 in Weight 222 lb BMI 31.9 BP 110/76 Blood Pressure Location Lt brachial Position Sitting Respiration 18 Pulse 63 Pulse Source Pulse Oximeter Temp 98.5 F Temp Source Oral Pulse Oximetry (%) 96 Oxygen Delivery Method Room Air Intake Visit Reasons: PE Intake Note: Pt is here today for PE. Allergies No Known Allergies Allergy (Verified 05/31/25 08:28) Medication List - Last Reconciled 05/31/25 by Farrah Hsu MD No Known Home Meds Tobacco use date assessed: 05/31/25 Dental Screening Dental Screen Date: 05/31/25 Did you have a dental visit in the last 12 months?: Yes Did you have a dental problem in the last 6 months where you did not have access to dental care?: No Was dental information given to patient?: Patient has dentist HPI PE HPI Details Pt presents for PE. 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 1. Little interest or pleasure in doing things: not at all 2. Feeling down, depressed, or hopeless: not at all 3. Trouble falling or staying asleep, or sleeping too much: not at all 4. Feeling tired or having little energy: several days 5. Poor appetite or overeating: not at all 6. Feeling bad about yourself - or that you are a failure or have let yourself or your family down: not at all 7. Trouble concentrating on things, such as reading the newspaper or watching television: not at all 8. Moving or speaking so slowly that other people could have noticed. Or the opposite - being so fidgety or restless that you have been moving around a lot more than usual: not at all 9. Thoughts that you would be better off or of hurting yourself in some way: not at all Total score: 1 Depression Screening Interpretation: Negative Depression Screening Done: Yes 37505 - PHQ-9 Billing: Yes Source: Developed by Drs. Rony Vallejo, Avis Singleton, Sumeet Perdomo and colleagues, with an educational chris from [employer]. Thrive Questionnaire Date Thrive assessed: 05/31/25 I am a: Patient What is your living situation today?: I have a steady place to live Within the past 12 months, did the food you bought not last and you didn't have the money to get more?: Never true Within the past 12 months, did you worry whether your food would run out before you got money to buy more?: Never true Do you have trouble paying for medicines?: No Do you have trouble getting transportation to medical appointments?: No Do you have trouble paying your heating and electricity bill?: No Do you have trouble taking care of your child, family member or friend?: No Do you have trouble with day-to-day activities such as bathing, preparing meals, shopping, managing finances, etc.?: No Are you currently unemployed and looking for a job?: No Are you interested in more education?: No Please select the resources that you would like help with: None Currently or been in a relationship where the following occur: No concerns reported THRIVE Score: 0 AUDIT C Alcohol Use Questionnaire (AUDIT-C) 1. How often do you have a drink containing alcohol?: Never 3. How often do you have six or more drinks on one occasion?: Never Total Score: 0 TETO-7 AMB Questionnaire TETO-7 Date TETO - 7 assessed: 05/31/25 Feeling nervous, anxious, or on edge: 0 = Not at all Not being able to stop or control worryin = Not at all Worrying too much about different things: 0 = Not at all Trouble relaxin = Not at all Being so restless that it is hard to sit still: 0 = Not at all Becoming easily annoyed or irritable: 0 = Not at all Feeling afraid as if something awful might happen: 0 = Not at all Total TETO-7 score (0-4 normal; 5-9 mild; 10-14 moderate; 15-21 severe): 0 Source: Developed by Drs. Rony Vallejo, Avis Singleton, Sumeet Perdomo and colleagues, with an educational chris from [employer]. TETO-7 Assessment Billing TETO-7 Assessment Tool: TETO-7 Assessment 44495 Review of Systems Const All systems reviewed & are unremarkable except as noted in HPI and below Eyes Reports no additional complaints ENT Reports no additional complaints Card Reports no additional complaints Resp Reports no additional complaints GI Reports no additional complaints Reports no additional complaints Musc Reports no additional complaints Physical exam (Primary Care) Vital Signs: Last Vital Signs Temp 98.5 F 05/31/25 08:22 Pulse 63 05/31/25 08:22 Resp 18 05/31/25 08:22 BP 110/76 05/31/25 08:22 Pulse Ox 96 05/31/25 08:22 Oxygen Delivery Method Room Air 05/31/25 08:22 BMI result Body Mass Index 31.9 Tobacco/Smoking Status: Tobacco use Status Tobacco use date assessed 05/31/25 05/31/25 08:32 Patient Tobacco Use Status Former Tobacco user 05/31/25 08:23 e-Cigarette/Vaping Use Never Used 05/31/25 08:23 PHQ-9: PHQ-9 Score PHQ-9: Total score 1 05/31/25 08:32 Depression Screening Interpretation: Negative Thrive Assessment: Date of Thrive Assessment Date Thrive assessed 05/31/25 05/31/25 08:32 Currently or been in a relationship where the following occur: No concerns reported Const General: no acute distress HENMT Head: Yes normal to inspection Ears: hearing grossly normal bilaterally General nose exam: Normal external nose present Mouth: Normal oral and palatal mucosa present Throat: Yes posterior oropharynx normal Eyes General: appearance normal, both eyes and all related structures Neck Neck: Yes no lymphadenopathy and Yes supple Resp Effort & Inspection: normal respiratory effort Auscultation: clear to auscultation bilaterally Cardio Rhythm: regular rhythm Heart sounds: S1 normal heart sound present and S2 normal heart sound present GI Inspection: Yes normal to inspection Palpation (GI): Soft to palpation Percussion: Yes normal to percussion Auscultation: normal bowel sounds Coding Level of Care Code Est Pt Prev Care 40-64y(47406) Diagnoses Thrombocytopenia D69.6 Annual physical exam Z00.00 Additional Codes TETO-7 Assessment Billing - TETO-7 Assessment Tool: TETO-7 Assessment 31622 ([id number]) PHQ-9 - 10507 - PHQ-9 Billing: Yes ([id number]) Assessment & Plan Assessment & Plan (1) Thrombocytopenia: Comment: mild, stable for years Code(s): D69.6 - Thrombocytopenia, unspecified Category: Medical Plan: check CBC (2) Annual physical exam: Code(s): Z00.00 - Encounter for general adult medical examination without abnormal findings Category: Medical Plan: well balanced diet, regular diet discussed, Cologuard will be checked for colon cancer screening Orders: Orders Vitamin D 25-OH Total Today Z00.00 - Encounter for general adult medical examination without abnormal findings Referrals Cologuard Test Z12.11 - Encounter for screening for malignant neoplasm of colon, Z12.12 - Encounter for screening for malignant neoplasm of rectum
[2025-05-31 08:22] VITALS: BP 110/76; PULSE 63; RESP 18; TEMP 36.9; O2SAT 96; BMI 31.9
== END 2025-05-31 08:47 | disposition home or self-care (01) ==
LOC: HO.HMCC 08:18
PROVIDERS: PCP Internal Medicine; Visit Provider Internal Medicine
DX: D69.6 Thrombocytopenia, unspecified (principal); Z00.00 Encounter for general adult medical examination without abnormal findings